=== PATIENT | female | born 1970 | race Caucasian/White ===

== ENCOUNTER 2018-06-15 17:08 | Emergency (ER) | payer BC ==
[~2018-06-15] VITALS: Ht 170.2 cm; Wt 124.7 kg
[~2018-06-15 17:08] MED LIST: ACETAMINOPHEN-1 EAC1 PO; CELEXA20 MG; LISINOPRIL-HCT1 EACH PO; ROBAXIN500 MG PO; TOPAMAX 100 MG100 MG PO
[2018-06-15] MEDS ORDERED: ZYPREXA20 MG PO (17:20)
[2018-06-15] MEDS ORDERED: PREDNISONE 20 M20 M1 PO (17:37)
[2018-06-15] MEDS ORDERED: ALBUTEROL2.5 MG/31 INH (17:37)
[2018-06-15] MEDS ORDERED: PROAIR HFA8.5 GM INH (17:37)
[2018-06-15] MEDS ORDERED: AUGMENTIN 875-1 EACH PO (18:20)
[2018-06-15 18:24] VITALS: BP 120/52
== END 2018-06-15 18:25 | disposition home or self-care (01) ==
LOC: M.ERS 17:08
DX: J20.9 Acute bronchitis, unspecified (principal); F32.9 Major depressive disorder, single episode, unspecified; G43.909 Migraine, unspecified, not intractable, without status migrainosus; I10 Essential (primary) hypertension; Z90.710 Acquired absence of both cervix and uterus